=== PATIENT | female | born 1955 | race African-American/Black ===

== ENCOUNTER 2020-12-13 14:01 | Inpatient (IN) | payer MEDICAID ==
[~2020-12-13] VITALS: Ht 162.6 cm; Wt 62.8 kg
[2020-12-13] MEDS ORDERED: CEFTAZIDIME PENTAHYDRATE 2 G in DEXT 5% WATER 100 ML IV STA (14:21)
[2020-12-13] MEDS ORDERED: CALCIUM GLUCONATE 100MG/ML 10ML VIAL IV ONE (14:30)
[2020-12-13] MEDS ORDERED: VANCOMYCIN 1 G PREMIX 200 ML IV SCH (14:30)
[2020-12-13 14:55] LABS: BASOPHILS % 0.3 % (0.0-2.0); HEMATOCRIT. 30.3 % (36.0-48.0); HEMOGLOBIN. 9.7 g/dL (12.0-16.0); MEAN CORPUSCULAR HEMOGLOBIN 30.6 pg (28.0-32.0); MEAN CORPUSCULAR VOLUME 95.5 fL (81.0-99.0); MEAN PLATELET VOLUME 11.2 fl (7.4-10.4); MONOCYTES % 9.6 % (2.0-8.0); NEUTROPHILS % 82.1 % (40.0-76.0); PLATELET 89 x1000/uL (130-400); RED BLOOD CELL COUNT 3.17 mill/uL (4.2-5.4); RED CELL DISTRIBUTION WIDTH 17.4 % (11.6-14.6)
[2020-12-13 15:02] LABS: CHLORIDE 100 mEq/L (98-107)
[2020-12-13] MEDS ORDERED: ASPIRIN 81MG TABLET PO ONE (16:30)
[2020-12-13] MEDS ORDERED: NITROGLYCERIN 0.4MG TABLET SL SL ONE (16:30)
[2020-12-13] MEDS ORDERED: MORPHINE SULFATE 4 MG/ML CPJ (NOT FOR IM USE) IV ONE (16:30)
[2020-12-13] MEDS ORDERED: ASPIRIN 325MG TABLET PO ONE (17:00)
[2020-12-13] MEDS ORDERED: SODIUM CHLORIDE 0.9% 250 ML IV ONE (17:30)
[2020-12-13] MEDS ORDERED: HYDROCORTISONE SOD SUCCINATE 100 MG/2 ML VIAL IV ONE (17:30)
[2020-12-13 19:14] LABS: BG BASE EXCESS -3.3 mmol/L (-2.0-2.0); BG CARBOXYHEMOGLOBIN 0.3 % (0.5-1.5); BG DEOXYHEMOGLOBIN 0.6 % (0.0-5.0); BG FRACTION INSPIRED OXYGEN 100; BG METHEMOGLOBIN 0.1 % (0.0-1.5); BG OXYGEN SATURATION 99.4 % (92.0-98.5); BG PCO2 62.4 mmHg (35.0-45.0); BG PO2 280.4 mmHg (75.0-100.0); BG SAMPLE SITE RIGHT BRACHIAL; BG TOTAL HEMOGLOBIN 10.1 g/dL (12.0-18.0); BG VENT MODE MASK - NRB
[2020-12-13 22:02] VITALS: BP 164/78
[2020-12-13 23:02] VITALS: BP 152/77
[2020-12-13] MEDS ORDERED: LISI20TA31 PO (23:33)
[2020-12-13] MEDS ORDERED: CALC667T6 PO (23:33)
[2020-12-13] MEDS ORDERED: CLOP75TA33 PO (23:33)
[2020-12-13] MEDS ORDERED: SERT-422 PO (23:33)
[2020-12-13] MEDS ORDERED: FURO20TA4 PO (23:33)
[2020-12-13] MEDS ORDERED: AMLO10TA80 PO (23:33)
[2020-12-13] MEDS ORDERED: GABA-290 PO (23:33)
[2020-12-13] MEDS ORDERED: ATOR80TA PO (23:33)
[2020-12-13] MEDS ORDERED: CARV6.2548 PO (23:33)
[2020-12-14] VITALS (13 sets, daily range): BP systolic 91–149; BP diastolic 41–90
[2020-12-14] MEDS ORDERED: LORAZEPAM 2MG/ML CPJ IV PRN (01:00)
[2020-12-14] MEDS ORDERED: DEXTROSE 50% WATER 50ML SYRINGE IV PRN (01:00)
[2020-12-14] MEDS: EPOETIN ALFA-EPBX 4,000 UNIT/ML VIAL SUBCUT SCH (02:28)
[2020-12-14] MEDS: DIPHENHYDRAMINE 50MG/ML VIAL IV PRN ×2 (03:21→14:52)
[2020-12-14] MEDS: BLOOD SUGAR DIAGNOSTIC STRIP TEST SCH ×4 (06:35→20:22)
[2020-12-14 08:10] LABS: HEMATOCRIT. 29.2 % (36.0-48.0); HEMOGLOBIN. 9.2 g/dL (12.0-16.0); MEAN CORPUSCULAR HEMOGLOBIN 29.6 pg (28.0-32.0); MEAN CORPUSCULAR VOLUME 93.8 fL (81.0-99.0); MEAN PLATELET VOLUME 11.1 fl (7.4-10.4); PLATELET 110 x1000/uL (130-400); RED BLOOD CELL COUNT 3.12 mill/uL (4.2-5.4); RED CELL DISTRIBUTION WIDTH 17.7 % (11.6-14.6)
[2020-12-14] MEDS: CALCIUM ACETATE 667MG CAPSULE PO SCH ×3 (08:15→16:38)
[2020-12-14] MEDS: SERTRALINE HCL 50MG TABLET PO SCH (08:15)
[2020-12-14] MEDS: CLOPIDOGREL 75MG TABLET PO SCH (08:15)
[2020-12-14] MEDS: FOLIC ACID/VITAMIN B COMP W-C TABLET PO SCH (08:15)
[2020-12-14] MEDS: INSULIN LISPRO 100 UNITS/ML SUBCUT SCH ×4 (08:21→20:34)
[2020-12-14] MEDS: CARVEDILOL 6.25 MG TABLET PO SCH ×2 (08:27→21:13)
[2020-12-14] MEDS: AMLODIPINE 10MG TABLET PO SCH (09:00)
[2020-12-14] MEDS: LISINOPRIL 20MG TABLET PO SCH (09:00)
[2020-12-14 09:13] LABS: PHOSPHORUS 7.6 mg/dL (2.5-4.9)
[2020-12-14] MEDS ORDERED: HYDROCODONE/ACETAMINOPHEN 5/325MG TABLET PO PRN (15:30)
[2020-12-14] MEDS ORDERED: ACETAMINOPHEN 650MG/20.3ML UDC PO PRN (15:30)
[2020-12-15] VITALS (12 sets, daily range): BP systolic 93–147; BP diastolic 64–97
[2020-12-15 01:19] LABS: PLATELET ESTIMATE DECREASED
[2020-12-15 06:17] LABS: BASOPHILS % 0.5 % (0.0-2.0); HEMATOCRIT. 30.4 % (36.0-48.0); HEMOGLOBIN. 9.7 g/dL (12.0-16.0); LYMPHOCYTES % 11.2 % (20.0-50.0); MEAN CORPUSCULAR HEMOGLOBIN 29.7 pg (28.0-32.0); MEAN CORPUSCULAR VOLUME 93.4 fL (81.0-99.0); MEAN PLATELET VOLUME 10.6 fl (7.4-10.4); NEUTROPHILS % 75.3 % (40.0-76.0); PLATELET 102 x1000/uL (130-400); RED BLOOD CELL COUNT 3.26 mill/uL (4.2-5.4); RED CELL DISTRIBUTION WIDTH 17.6 % (11.6-14.6)
[2020-12-15] MEDS: BLOOD SUGAR DIAGNOSTIC STRIP TEST SCH ×4 (06:23→20:13)
[2020-12-15] MEDS: INSULIN LISPRO 100 UNITS/ML SUBCUT SCH ×4 (06:41→20:36)
[2020-12-15] MEDS: CALCIUM ACETATE 667MG CAPSULE PO SCH ×3 (07:20→16:59)
[2020-12-15] MEDS: CARVEDILOL 6.25 MG TABLET PO SCH ×2 (09:00→21:00)
[2020-12-15] MEDS: SERTRALINE HCL 50MG TABLET PO SCH (17:00)
[2020-12-15] MEDS: CLOPIDOGREL 75MG TABLET PO SCH (17:00)
[2020-12-15] MEDS: FOLIC ACID/VITAMIN B COMP W-C TABLET PO SCH (17:00)
[2020-12-15] MEDS: AMLODIPINE 10MG TABLET PO SCH (17:01)
[2020-12-15] MEDS: LISINOPRIL 20MG TABLET PO SCH (17:03)
[2020-12-15] MEDS: ONDANSETRON HCL 4MG/2ML INJ IV PRN (18:38)
[2020-12-15] MEDS: FAMOTIDINE 20MG TABLET PO SCH (20:51)
[2020-12-16] VITALS (12 sets, daily range): BP systolic 103–126; BP diastolic 57–68
[2020-12-16] MEDS: BLOOD SUGAR DIAGNOSTIC STRIP TEST SCH ×4 (06:43→21:00)
[2020-12-16] MEDS: INSULIN LISPRO 100 UNITS/ML SUBCUT SCH ×4 (06:56→22:02)
[2020-12-16] MEDS: ONDANSETRON HCL 4MG/2ML INJ IV PRN (07:53)
[2020-12-16] MEDS: CARVEDILOL 6.25 MG TABLET PO SCH ×2 (09:00→22:00)
[2020-12-16] MEDS: AMLODIPINE 10MG TABLET PO SCH (09:00)
[2020-12-16] MEDS: LISINOPRIL 20MG TABLET PO SCH (09:00)
[2020-12-16] MEDS: CLOPIDOGREL 75MG TABLET PO SCH (10:04)
[2020-12-16] MEDS: FOLIC ACID/VITAMIN B COMP W-C TABLET PO SCH (10:04)
[2020-12-16] MEDS: CALCIUM ACETATE 667MG CAPSULE PO SCH ×3 (10:04→17:20)
[2020-12-16] MEDS: SERTRALINE HCL 50MG TABLET PO SCH (10:04)
[2020-12-16 11:06] LABS: BG BASE EXCESS -3.5 mmol/L (-2.0-2.0); BG CARBOXYHEMOGLOBIN 0.2 % (0.5-1.5); BG DEOXYHEMOGLOBIN 29.4 % (0.0-5.0); BG HCO3 ACT 25.2 mmol/L (22.0-26.0); BG METHEMOGLOBIN 0.4 % (0.0-1.5); BG OXYGEN SATURATION 70.4 % (92.0-98.5); BG PH 7.207 (7.350-7.450); BG PO2 42.5 mmHg (75.0-100.0); BG SAMPLE SITE RIGHT RADIAL; BG TOTAL HEMOGLOBIN 11.1 g/dL (12.0-18.0); BG VENT MODE ROOM AIR
[2020-12-16 11:45] LABS: BASOPHILS % 0.3 % (0.0-2.0); HEMATOCRIT. 30.2 % (36.0-48.0); HEMOGLOBIN. 9.8 g/dL (12.0-16.0); LYMPHOCYTES % 7.3 % (20.0-50.0); MEAN CORPUSCULAR HEMOGLOBIN 30.4 pg (28.0-32.0); MEAN CORPUSCULAR VOLUME 93.6 fL (81.0-99.0); MEAN PLATELET VOLUME 10.4 fl (7.4-10.4); MONOCYTES % 10.3 % (2.0-8.0); NEUTROPHILS % 82.1 % (40.0-76.0); PLATELET 102 x1000/uL (130-400); RED BLOOD CELL COUNT 3.23 mill/uL (4.2-5.4); RED CELL DISTRIBUTION WIDTH 17.3 % (11.6-14.6)
[2020-12-16] MEDS: METHYLPREDNISOLONE SOD SUCC 40 MG/ML VIAL IV SCH ×2 (12:00→22:03)
[2020-12-16 12:20] LABS: VITAMIN B12 SERUM 1244 pg/mL (211-911)
[2020-12-16 16:01] LABS: HEPATITIS B SURFACE ANTIGEN NEGATIVE
[2020-12-16 16:30] LABS: HEPATITIS A AB IGM NEGATIVE (NEGATIVE)
[2020-12-16] MEDS: ALBUTEROL (0.083%) 2.5MG/3ML NEB HHN SCH (21:03)
[2020-12-16] MEDS: FAMOTIDINE 20MG TABLET PO SCH (21:59)
[2020-12-16] MEDS: EPOETIN ALFA-EPBX 4,000 UNIT/ML VIAL SUBCUT SCH (22:01)
[2020-12-17] VITALS (8 sets, daily range): BP systolic 103–123; BP diastolic 47–94
[2020-12-17] MEDS: ALBUTEROL (0.083%) 2.5MG/3ML NEB HHN SCH ×2 (01:45→09:21)
[2020-12-17] MEDS: BLOOD SUGAR DIAGNOSTIC STRIP TEST SCH ×2 (06:30→12:38)
[2020-12-17 07:12] LABS: HEMATOCRIT. 32.6 % (36.0-48.0); HEMOGLOBIN. 10.2 g/dL (12.0-16.0); MEAN CORPUSCULAR HEMOGLOBIN 30.4 pg (28.0-32.0); MEAN CORPUSCULAR VOLUME 96.8 fL (81.0-99.0); MEAN PLATELET VOLUME 11.3 fl (7.4-10.4); PLATELET 101 x1000/uL (130-400); RED BLOOD CELL COUNT 3.37 mill/uL (4.2-5.4); RED CELL DISTRIBUTION WIDTH 17.8 % (11.6-14.6)
[2020-12-17] MEDS: METHYLPREDNISOLONE SOD SUCC 40 MG/ML VIAL IV SCH (08:40)
[2020-12-17] MEDS: LISINOPRIL 20MG TABLET PO SCH (08:40)
[2020-12-17] MEDS: CALCIUM ACETATE 667MG CAPSULE PO SCH ×2 (08:40→12:20)
[2020-12-17] MEDS: SERTRALINE HCL 50MG TABLET PO SCH (08:42)
[2020-12-17] MEDS: FOLIC ACID/VITAMIN B COMP W-C TABLET PO SCH (08:42)
[2020-12-17] MEDS: CARVEDILOL 6.25 MG TABLET PO SCH (08:42)
[2020-12-17] MEDS: CLOPIDOGREL 75MG TABLET PO SCH (08:42)
[2020-12-17] MEDS: AMLODIPINE 10MG TABLET PO SCH (08:42)
[2020-12-17] MEDS: INSULIN LISPRO 100 UNITS/ML SUBCUT SCH ×2 (08:43→13:26)
[2020-12-17] MEDS: ONDANSETRON HCL 4MG/2ML INJ IV PRN (09:42)
[2020-12-17] MEDS ORDERED: SODIUM POLYSTYRENE SULFONATE 15 G/60 ML BOT PO SCH (11:00)
[2020-12-17 13:21] LABS: PLATELET ESTIMATE DECREASED
[2020-12-17] MEDS ORDERED: INSULIN LISPRO 100 UNITS/ML SUBCUT SCH (13:30)
[2020-12-17] MEDS ORDERED: INSULIN REGULAR (HUMULIN R) UD 100 UNITS/ML SYR SUBCUT SCH (14:00)
== END 2020-12-17 13:44 | disposition home or self-care (01) | DRG 133 ==
LOC: ER 14:48 → 3WST 17:07 → ENRESERV 19:35
PROVIDERS: ADMIT Family Medicine; ATTEND Family Medicine
PROC: 5A1D70Z Performance of Urinary Filtration, Intermittent, Less than 6 Hours Per Day (ICD-10-PCS; principal; 2020-12-13)
PROC: 5A1D70Z Performance of Urinary Filtration, Intermittent, Less than 6 Hours Per Day (ICD-10-PCS; 2020-12-14)
PROC: 5A1D70Z Performance of Urinary Filtration, Intermittent, Less than 6 Hours Per Day (ICD-10-PCS; 2020-12-16)
PROC: 5A1D70Z Performance of Urinary Filtration, Intermittent, Less than 6 Hours Per Day (ICD-10-PCS; 2020-12-17)
DX: J96.01 Acute respiratory failure with hypoxia (principal); I13.2 Hypertensive heart and chronic kidney disease with heart failure and with stage 5 chronic kidney disease, or end stage renal disease; E11.22 Type 2 diabetes mellitus with diabetic chronic kidney disease; E87.1 Hypo-osmolality and hyponatremia; N18.6 End stage renal disease; E87.5 Hyperkalemia; I69.954 Hemiplegia and hemiparesis following unspecified cerebrovascular disease affecting left non-dominant side; D64.9 Anemia, unspecified; S92.352A Displaced fracture of fifth metatarsal bone, left foot, initial encounter for closed fracture; I25.10 Atherosclerotic heart disease of native coronary artery without angina pectoris; J44.9 Chronic obstructive pulmonary disease, unspecified; F32.9 Major depressive disorder, single episode, unspecified; I50.43 Acute on chronic combined systolic (congestive) and diastolic (congestive) heart failure; X58.XXXA Exposure to other specified factors, initial encounter; Z91.19 Patient's noncompliance with other medical treatment and regimen; Z95.1 Presence of aortocoronary bypass graft; Z99.2 Dependence on renal dialysis; Z88.0 Allergy status to penicillin; Z79.899 Other long term (current) drug therapy; I25.2 Old myocardial infarction; Y93.89 Activity, other specified; Y92.89 Other specified places as the place of occurrence of the external cause; Y99.8 Other external cause status
CPT/HCPCS: 36415; 36600; 71045; 73630; 80048; 80053; 80074; 82140; 82375; 82607; 82652; 82805; 82962; 83735; 83880; 84100; 84443; 84484; 85025; 86705; 86709; 86803; 87340; 93005; 93970; 94640; 97162; 99291; A6261; J0610; J0713; J0885; J1200; J1720; J1815; J2060; J2270; J2405; J2920; J3370; J7050; J7060

== ENCOUNTER 2021-03-10 22:07 | Emergency (ER) | payer MEDICAID ==
[~2021-03-10] VITALS: Ht 165.1 cm; Wt 73.0 kg
[~2021-03-10 22:07] MED LIST: AMLO10TA80 PO; ATOR80TA PO; CALC667T6 PO; CARV6.2548 PO; CLOP75TA33 PO; FURO20TA4 PO; GABA-290 PO; LISI20TA31 PO; SERT50TA12 PO
[2021-03-10] MEDS ORDERED: IBUP-2029 MT (23:05)
[2021-03-10] MEDS ORDERED: GABA-532 MT (23:05)
[2021-03-10] MEDS ORDERED: MORPHINE SULFATE 4 MG/ML CPJ (NOT FOR IM USE) IV ONE (23:15)
[2021-03-10 23:35] VITALS: BP 145/68
== END 2021-03-11 00:18 | disposition home or self-care (01) ==
LOC: ER 22:07
DX: M79.672 Pain in left foot (principal); G62.9 Polyneuropathy, unspecified; E11.22 Type 2 diabetes mellitus with diabetic chronic kidney disease; N18.6 End stage renal disease; Z88.0 Allergy status to penicillin; Z99.2 Dependence on renal dialysis
CPT/HCPCS: 82962; 93005; 96374; 99283; J2270

== ENCOUNTER 2021-04-07 13:55 | Inpatient (IN) | payer MEDICARE, MEDICAID ==
[~2021-04-07] VITALS: Ht 165.1 cm; Wt 64.9 kg
[~2021-04-07 13:55] MED LIST changes: +GABA-532 MT; +IBUP-2029 MT; +SERT-422 PO; -SERT50TA12 PO
[2021-04-07 16:21] LABS: BASOPHILS % 0.7 % (0.0-2.0); EOSINOPHILS % 0.2 % (0.0-5.0); HEMATOCRIT. 26.5 % (36.0-48.0); HEMOGLOBIN. 8.3 g/dL (12.0-16.0); LYMPHOCYTES % 8.8 % (20.0-50.0); MEAN CORPUSCULAR HEMOGLOBIN 29.9 pg (28.0-32.0); MEAN CORPUSCULAR VOLUME 95.5 fL (81.0-99.0); MEAN PLATELET VOLUME 10.7 fl (7.4-10.4); MONOCYTES % 9.3 % (2.0-8.0); PLATELET 118 x1000/uL (130-400); RED BLOOD CELL COUNT 2.78 mill/uL (4.2-5.4); RED CELL DISTRIBUTION WIDTH 19.9 % (11.6-14.6)
[2021-04-07 16:29] LABS: CHLORIDE 99 mEq/L (98-107)
[2021-04-07 16:37] LABS: ETHANOL BLOOD < 10 mg/dL
[2021-04-07 19:57] LABS: BG BASE EXCESS 2.2 mmol/L (-2.0-2.0); BG CARBOXYHEMOGLOBIN 0.6 % (0.5-1.5); BG FRACTION INSPIRED OXYGEN 21; BG HCO3 ACT 28.2 mmol/L (22.0-26.0); BG METHEMOGLOBIN 0.2 % (0.0-1.5); BG OXYHEMOGLOBIN 93.2 % (94.0-97.0); BG PCO2 51.7 mmHg (35.0-45.0); BG PH 7.355 (7.350-7.450); BG PO2 73.3 mmHg (75.0-100.0); BG SAMPLE SITE LEFT RADIAL; BG VENT MODE ROOM AIR
[2021-04-07] MEDS ORDERED: ACETAMINOPHEN 325MG TABLET PO PRN ×2 (20:45)
[2021-04-07] MEDS ORDERED: CLONIDINE 0.1MG TABLET PO PRN (20:45)
[2021-04-07] MEDS ORDERED: ONDANSETRON HCL 4MG/2ML INJ IV PRN (20:45)
[2021-04-07] MEDS ORDERED: MAGNESIUM/ALUMINUM HYDROXIDE/SIMETHICONE 30ML UDC PO PRN (20:45)
[2021-04-07] MEDS ORDERED: ZOLPIDEM TARTRATE 5MG TABLET PO PRN (20:45)
[2021-04-07] MEDS: BLOOD SUGAR DIAGNOSTIC STRIP TEST SCH (21:00)
[2021-04-07] MEDS: INSULIN LISPRO 100 UNITS/ML SUBCUT SCH (21:00)
[2021-04-07 21:35] VITALS: BP 120/66
[2021-04-07] MEDS ORDERED: INSULIN GLARGINE UD 100 UNITS/ML SYR SUBCUT SCH (22:00)
[2021-04-07] MEDS: ATORVASTATIN CALCIUM 40MG TABLET PO SCH (22:03)
[2021-04-07] MEDS: CARVEDILOL 3.125 MG TABLET PO SCH (22:04)
[2021-04-07] MEDS ORDERED: NALOXONE HCL 0.4MG/ML VIAL IV PRN (23:00)
[2021-04-07] MEDS: SODIUM CHLORIDE 0.9% INJ 3ML FLUSH IVF SCH (23:05)
[2021-04-07] MEDS: MORPHINE SULFATE 2 MG/ML CPJ (NOT FOR IM USE) IV PRN (23:12)
[2021-04-08] VITALS: BP 137/76
[2021-04-08] MEDS: DIPHENHYDRAMINE 50MG/ML VIAL IV PRN ×2 (00:38→21:38)
[2021-04-08 04:00] VITALS: BP 106/63
[2021-04-08] MEDS: SODIUM CHLORIDE 0.9% INJ 3ML FLUSH IVF SCH ×3 (05:50→21:29)
[2021-04-08] MEDS: BLOOD SUGAR DIAGNOSTIC STRIP TEST SCH ×4 (06:26→20:09)
[2021-04-08] MEDS: MORPHINE SULFATE 2 MG/ML CPJ (NOT FOR IM USE) IV PRN ×3 (06:42→20:20)
[2021-04-08 08:00] VITALS: BP 110/76
[2021-04-08] MEDS: ASPIRIN 81MG EC TABLET PO SCH (09:32)
[2021-04-08] MEDS: CARVEDILOL 3.125 MG TABLET PO SCH ×2 (09:33→20:19)
[2021-04-08] MEDS: INSULIN LISPRO 100 UNITS/ML SUBCUT SCH ×4 (09:35→20:10)
[2021-04-08] MEDS: HYDROCODONE/ACETAMINOPHEN 5/325MG TABLET PO PRN ×2 (10:46)
[2021-04-08] MEDS ORDERED: INFLUENZA VACCINE 05/PF 0.5 ML SYRINGE IM ONE (12:00)
[2021-04-08] MEDS ORDERED: PNEUMOCOCCAL 23-VAL P-SAC VAC 0.5 ML IM ONE (12:00)
[2021-04-08 12:15] VITALS: BP 99/66
[2021-04-08] MEDS: DEXTROSE 50% WATER 50ML SYRINGE IV PRN (17:38)
[2021-04-08 18:13] LABS: HEPATITIS B SURFACE ANTIGEN NEGATIVE
[2021-04-08] MEDS: ATORVASTATIN CALCIUM 40MG TABLET PO SCH (20:18)
[2021-04-08 20:39] VITALS: BP 145/68
[2021-04-08] MEDS: INSULIN GLARGINE UD 100 UNITS/ML SYR SUBCUT SCH (22:11)
[2021-04-09] MEDS: HYDROCODONE/ACETAMINOPHEN 5/325MG TABLET PO PRN ×2 (00:08→14:02)
[2021-04-09 00:18] VITALS: BP 122/65
[2021-04-09] MEDS: MORPHINE SULFATE 2 MG/ML CPJ (NOT FOR IM USE) IV PRN ×3 (03:49→22:01)
[2021-04-09 04:00] VITALS: BP 127/75
[2021-04-09] MEDS: SODIUM CHLORIDE 0.9% INJ 3ML FLUSH IVF SCH ×3 (06:10→21:13)
[2021-04-09] MEDS: BLOOD SUGAR DIAGNOSTIC STRIP TEST SCH ×4 (06:15→21:04)
[2021-04-09] MEDS: DEXTROSE 50% WATER 50ML SYRINGE IV PRN (06:18)
[2021-04-09] MEDS: INSULIN LISPRO 100 UNITS/ML SUBCUT SCH ×4 (06:54→21:12)
[2021-04-09 06:58] LABS: BASOPHILS % 0.5 % (0.0-2.0); EOSINOPHILS % 0.1 % (0.0-5.0); HEMATOCRIT. 29.8 % (36.0-48.0); HEMOGLOBIN. 9.2 g/dL (12.0-16.0); LYMPHOCYTES % 9.6 % (20.0-50.0); MEAN CORPUSCULAR HEMOGLOBIN 30.3 pg (28.0-32.0); MEAN CORPUSCULAR VOLUME 98.1 fL (81.0-99.0); MEAN PLATELET VOLUME 11.6 fl (7.4-10.4); MONOCYTES % 12.4 % (2.0-8.0); NEUTROPHILS % 77.4 % (40.0-76.0); PLATELET 141 x1000/uL (130-400); RED BLOOD CELL COUNT 3.04 mill/uL (4.2-5.4); RED CELL DISTRIBUTION WIDTH 20.2 % (11.6-14.6)
[2021-04-09 07:05] LABS: CHLORIDE 99 mEq/L (98-107)
[2021-04-09 08:12] VITALS: BP 113/59
[2021-04-09] MEDS: CARVEDILOL 3.125 MG TABLET PO SCH ×2 (09:00→21:00)
[2021-04-09] MEDS: ASPIRIN 81MG EC TABLET PO SCH (09:22)
[2021-04-09 12:20] VITALS: BP 104/63
[2021-04-09 16:58] VITALS: BP 121/66
[2021-04-09 20:44] VITALS: BP 117/57
[2021-04-09] MEDS: ATORVASTATIN CALCIUM 40MG TABLET PO SCH (21:11)
[2021-04-09] MEDS: INSULIN GLARGINE UD 100 UNITS/ML SYR SUBCUT SCH (21:12)
[2021-04-10 00:25] VITALS: BP 127/80
[2021-04-10] MEDS: DIPHENHYDRAMINE 50MG/ML VIAL IV PRN ×2 (01:39→07:57)
[2021-04-10 04:00] VITALS: BP 122/58
[2021-04-10] MEDS: SODIUM CHLORIDE 0.9% INJ 3ML FLUSH IVF SCH ×2 (06:05→12:06)
[2021-04-10 06:18] LABS: HEMATOCRIT. 32.4 % (36.0-48.0); HEMOGLOBIN. 9.1 g/dL (12.0-16.0); MEAN CORPUSCULAR VOLUME 106.4 fL (81.0-99.0); MEAN PLATELET VOLUME 11.4 fl (7.4-10.4); PLATELET 119 x1000/uL (130-400); RED BLOOD CELL COUNT 3.05 mill/uL (4.2-5.4); RED CELL DISTRIBUTION WIDTH 21.3 % (11.6-14.6)
[2021-04-10] MEDS: BLOOD SUGAR DIAGNOSTIC STRIP TEST SCH ×3 (06:31→17:20)
[2021-04-10] MEDS: INSULIN LISPRO 100 UNITS/ML SUBCUT SCH ×3 (07:50→17:28)
[2021-04-10] MEDS ORDERED: HEPARIN SODIUM 1,000 UNIT/1ML VIAL IV NR (08:15)
[2021-04-10 08:43] VITALS: BP 97/54
[2021-04-10] MEDS: CARVEDILOL 3.125 MG TABLET PO SCH (09:00)
[2021-04-10 10:57] LABS: PLATELET ESTIMATE DECREASED
[2021-04-10] MEDS: HYDROCODONE/ACETAMINOPHEN 5/325MG TABLET PO PRN (11:52)
[2021-04-10] MEDS: ASPIRIN 81MG EC TABLET PO SCH (12:25)
[2021-04-10 12:49] VITALS: BP 103/56
[2021-04-10 16:07] VITALS: BP 98/50
[2021-04-10 19:42] VITALS: BP 136/67
== END 2021-04-10 21:00 | disposition home or self-care (01) | DRG 52 ==
LOC: ER 13:55 → EDBEDREQTM 17:06 → EDBEDREQ 17:06 → EDBEDREQTM 18:21 → ENRESERV 20:42 → 6WST 21:47
PROVIDERS: ADMIT Internal Medicine; ATTEND Internal Medicine
PROC: 5A1D70Z Performance of Urinary Filtration, Intermittent, Less than 6 Hours Per Day (ICD-10-PCS; principal; 2021-04-10)
DX: G93.41 Metabolic encephalopathy (principal); J96.01 Acute respiratory failure with hypoxia; I50.43 Acute on chronic combined systolic (congestive) and diastolic (congestive) heart failure; D69.6 Thrombocytopenia, unspecified; E11.52 Type 2 diabetes mellitus with diabetic peripheral angiopathy with gangrene; E46 Unspecified protein-calorie malnutrition; I67.82 Cerebral ischemia; I96 Gangrene, not elsewhere classified; I69.354 Hemiplegia and hemiparesis following cerebral infarction affecting left non-dominant side; N18.6 End stage renal disease; E11.22 Type 2 diabetes mellitus with diabetic chronic kidney disease; I13.2 Hypertensive heart and chronic kidney disease with heart failure and with stage 5 chronic kidney disease, or end stage renal disease; E11.621 Type 2 diabetes mellitus with foot ulcer; I25.5 Ischemic cardiomyopathy; I25.10 Atherosclerotic heart disease of native coronary artery without angina pectoris; E87.5 Hyperkalemia; R07.89 Other chest pain; R26.89 Other abnormalities of gait and mobility; E78.5 Hyperlipidemia, unspecified; L97.529 Non-pressure chronic ulcer of other part of left foot with unspecified severity; L97.519 Non-pressure chronic ulcer of other part of right foot with unspecified severity; D64.9 Anemia, unspecified; I34.0 Nonrheumatic mitral (valve) insufficiency; Z99.2 Dependence on renal dialysis; Z95.1 Presence of aortocoronary bypass graft; Z95.3 Presence of xenogenic heart valve; Z95.5 Presence of coronary angioplasty implant and graft; I25.2 Old myocardial infarction; Z88.0 Allergy status to penicillin; Z79.899 Other long term (current) drug therapy; Z91.81 History of falling; Z68.23 Body mass index [BMI] 23.0-23.9, adult
CPT/HCPCS: 36415; 36600; 71045; 80048; 80051; 80053; 80320; 82140; 82375; 82805; 82962; 83036; 83605; 83880; 84484; 85025; 86705; 86709; 86803; 87340; 90686; 93005; 93306; 93923; 99291; A6261; C1893; J1200; J1644; J1815; J2270; J2405; G0480

== ENCOUNTER 2021-04-15 10:16 | Inpatient (IN) | payer MEDICARE, MEDICAID ==
[~2021-04-15] VITALS: Ht 162.6 cm; Wt 66.9 kg
[2021-04-15] MEDS ORDERED: KETOROLAC 30MG/ML VIAL IV ONE (10:45)
[2021-04-15] MEDS ORDERED: SODIUM CHLORIDE 0.9% 1000ML BAG (SEPSIS BOLUS) IV ONE (10:45)
[2021-04-15 11:08] LABS: HEMATOCRIT. 27.1 % (36.0-48.0); HEMOGLOBIN. 8.2 g/dL (12.0-16.0); MEAN CORPUSCULAR HEMOGLOBIN 29.4 pg (28.0-32.0); MEAN CORPUSCULAR VOLUME 97.1 fL (81.0-99.0); MEAN PLATELET VOLUME 10.5 fl (7.4-10.4); PLATELET 98 x1000/uL (130-400); RED BLOOD CELL COUNT 2.79 mill/uL (4.2-5.4); RED CELL DISTRIBUTION WIDTH 20.4 % (11.6-14.6)
[2021-04-15 11:14] LABS: CHLORIDE 100 mEq/L (98-107)
[2021-04-15 11:29] LABS: PLATELET ESTIMATE DECREASED
[2021-04-15 14:41] LABS: HEPATITIS B SURFACE ANTIGEN NEGATIVE
[2021-04-15] MEDS ORDERED: ONDANSETRON HCL 4MG/2ML INJ IV PRN (15:45)
[2021-04-15] MEDS ORDERED: CLONIDINE 0.1MG TABLET PO PRN (15:45)
[2021-04-15] MEDS ORDERED: ACETAMINOPHEN 325MG TABLET PO PRN ×2 (15:45)
[2021-04-15] MEDS ORDERED: DEXTROSE 50% WATER 50ML SYRINGE IV PRN (16:30)
[2021-04-15] MEDS: INSULIN LISPRO 100 UNITS/ML SUBCUT SCH ×2 (17:00→21:00)
[2021-04-15] MEDS: BLOOD SUGAR DIAGNOSTIC STRIP TEST SCH ×2 (17:45→21:22)
[2021-04-15] MEDS: HYDROCODONE/ACETAMINOPHEN 5/325MG TABLET PO PRN (18:00)
[2021-04-15] MEDS: CARVEDILOL 3.125 MG TABLET PO SCH (21:00)
[2021-04-15] MEDS: INSULIN GLARGINE UD 100 UNITS/ML SYR SUBCUT SCH (22:00)
[2021-04-15] MEDS: DIPHENHYDRAMINE 50MG/ML VIAL IV PRN (22:45)
[2021-04-15 22:48] VITALS: BP 111/57
[2021-04-15] MEDS: ATORVASTATIN CALCIUM 40MG TABLET PO SCH (22:50)
[2021-04-15] MEDS: SODIUM CHLORIDE 0.9% INJ 3ML FLUSH IVF SCH (22:51)
[2021-04-16] VITALS (7 sets, daily range): BP systolic 94–129; BP diastolic 41–68
[2021-04-16] MEDS: SODIUM CHLORIDE 0.9% INJ 3ML FLUSH IVF SCH ×3 (06:00→22:38)
[2021-04-16 06:57] LABS: HEMATOCRIT. 25.2 % (36.0-48.0); HEMOGLOBIN. 7.8 g/dL (12.0-16.0); MEAN CORPUSCULAR HEMOGLOBIN 30.1 pg (28.0-32.0); MEAN CORPUSCULAR VOLUME 97.7 fL (81.0-99.0); MEAN PLATELET VOLUME 11.1 fl (7.4-10.4); PLATELET 87 x1000/uL (130-400); RED BLOOD CELL COUNT 2.58 mill/uL (4.2-5.4); RED CELL DISTRIBUTION WIDTH 20.3 % (11.6-14.6)
[2021-04-16] MEDS: BLOOD SUGAR DIAGNOSTIC STRIP TEST SCH ×4 (07:01→21:47)
[2021-04-16] MEDS: INSULIN LISPRO 100 UNITS/ML SUBCUT SCH ×4 (07:04→21:00)
[2021-04-16] MEDS: CARVEDILOL 3.125 MG TABLET PO SCH ×2 (09:00→21:00)
[2021-04-16] MEDS: ASPIRIN 81MG EC TABLET PO SCH (09:00)
[2021-04-16 13:36] LABS: NUCLEATED RED BLOOD CELLS 1 /100 WBC; PLATELET ESTIMATE DECREASED
[2021-04-16] MEDS: HYDROCODONE/ACETAMINOPHEN 5/325MG TABLET PO PRN ×2 (17:21→22:53)
[2021-04-16] MEDS ORDERED: NALOXONE HCL 0.4MG/ML VIAL IV PRN (18:30)
[2021-04-16] MEDS: ATORVASTATIN CALCIUM 40MG TABLET PO SCH (21:46)
[2021-04-16] MEDS: INSULIN GLARGINE UD 100 UNITS/ML SYR SUBCUT SCH (21:48)
[2021-04-16] MEDS: EPOETIN ALFA-EPBX 10,000 UNIT/ML VIAL SUBCUT SCH (21:48)
[2021-04-17] VITALS: BP 119/64
[2021-04-17 04:00] VITALS: BP 110/59
[2021-04-17] MEDS: BLOOD SUGAR DIAGNOSTIC STRIP TEST SCH ×4 (06:06→20:57)
[2021-04-17] MEDS: SODIUM CHLORIDE 0.9% INJ 3ML FLUSH IVF SCH ×3 (06:08→21:01)
[2021-04-17] MEDS: INSULIN LISPRO 100 UNITS/ML SUBCUT SCH ×4 (07:10→20:58)
[2021-04-17 08:00] VITALS: BP 123/68
[2021-04-17] MEDS: ASPIRIN 81MG EC TABLET PO SCH (08:50)
[2021-04-17] MEDS: CARVEDILOL 3.125 MG TABLET PO SCH ×2 (08:51→20:57)
[2021-04-17] MEDS: HYDROCODONE/ACETAMINOPHEN 5/325MG TABLET PO PRN ×2 (08:54→16:13)
[2021-04-17] MEDS: DIPHENHYDRAMINE 50MG/ML VIAL IV PRN (11:17)
[2021-04-17] MEDS: AZTREONAM 500MG in DEXTROSE 5% WATER 50ML IV SCH ×2 (15:52→23:04)
[2021-04-17 16:00] VITALS: BP 126/88
[2021-04-17 17:21] LABS: HEMATOCRIT. 24.5 % (36.0-48.0); HEMOGLOBIN. 7.8 g/dL (12.0-16.0); MEAN CORPUSCULAR HEMOGLOBIN 30.2 pg (28.0-32.0); MEAN CORPUSCULAR VOLUME 95.2 fL (81.0-99.0); MEAN PLATELET VOLUME 10.9 fl (7.4-10.4); PLATELET 102 x1000/uL (130-400); RED BLOOD CELL COUNT 2.58 mill/uL (4.2-5.4); RED CELL DISTRIBUTION WIDTH 20.5 % (11.6-14.6)
[2021-04-17] MEDS ORDERED: AMIKACIN SULFATE 440 MG in SODIUM CHLORIDE 0.9% 100 ML IV NR (18:00)
[2021-04-17] MEDS ORDERED: AMIKACIN 500MG in SODIUM CHLORIDE 0.9% 100ML IV NR (18:00)
[2021-04-17 18:23] LABS: PLATELET ESTIMATE DECREASED
[2021-04-17 20:00] VITALS: BP 120/51
[2021-04-17] MEDS: ATORVASTATIN CALCIUM 40MG TABLET PO SCH (20:57)
[2021-04-17] MEDS: INSULIN GLARGINE UD 100 UNITS/ML SYR SUBCUT SCH (21:02)
[2021-04-18] VITALS: BP 116/50
[2021-04-18 04:00] VITALS: BP 110/53
[2021-04-18] MEDS: INSULIN LISPRO 100 UNITS/ML SUBCUT SCH ×5 (06:22→23:11)
[2021-04-18] MEDS: SODIUM CHLORIDE 0.9% INJ 3ML FLUSH IVF SCH ×3 (06:22→23:08)
[2021-04-18] MEDS: BLOOD SUGAR DIAGNOSTIC STRIP TEST SCH ×5 (06:22→22:53)
[2021-04-18 08:00] VITALS: BP 110/71
[2021-04-18] MEDS: ASPIRIN 81MG EC TABLET PO SCH (09:55)
[2021-04-18] MEDS: AZTREONAM 500MG in DEXTROSE 5% WATER 50ML IV SCH ×4 (09:56→23:05)
[2021-04-18] MEDS: LOPERAMIDE HCL 2MG CAPSULE PO PRN ×2 (09:56→18:09)
[2021-04-18] MEDS: CARVEDILOL 3.125 MG TABLET PO SCH ×2 (09:56→21:00)
[2021-04-18] MEDS: AMLODIPINE 2.5MG TABLET PO SCH (09:56)
[2021-04-18 12:00] VITALS: BP 94/65
[2021-04-18] MEDS: HYDROCODONE/ACETAMINOPHEN 5/325MG TABLET PO PRN ×2 (14:52→23:04)
[2021-04-18 16:00] VITALS: BP 102/58
[2021-04-18] MEDS ORDERED: GENTAMICIN SULFATE 320 MG in SODIUM CHLORIDE 0.9% 100 ML IV NR (18:00)
[2021-04-18 20:00] VITALS: BP 100/64
[2021-04-18] MEDS: EPOETIN ALFA-EPBX 10,000 UNIT/ML VIAL SUBCUT SCH ×2 (21:00→23:05)
[2021-04-18] MEDS: ATORVASTATIN CALCIUM 40MG TABLET PO SCH ×2 (21:00→23:03)
[2021-04-18] MEDS: INSULIN GLARGINE UD 100 UNITS/ML SYR SUBCUT SCH ×2 (22:00→23:07)
[2021-04-19] VITALS: BP 110/51
[2021-04-19] MEDS ORDERED: PROMETHAZINE/DEXTROMETHORPHAN 6.25-15MG/5ML BOTTLE 120ML PO PRN (00:15)
[2021-04-19] MEDS: AZTREONAM 500MG in DEXTROSE 5% WATER 50ML IV SCH ×2 (01:09→23:38)
[2021-04-19] MEDS: PROMETHAZINE HCL 6.25 MG/5 ML 118ML PO PRN (02:07)
[2021-04-19 04:00] VITALS: BP 105/69
[2021-04-19] MEDS: INSULIN LISPRO 100 UNITS/ML SUBCUT SCH ×4 (06:13→21:00)
[2021-04-19] MEDS: BLOOD SUGAR DIAGNOSTIC STRIP TEST SCH ×4 (06:20→21:00)
[2021-04-19] MEDS: SODIUM CHLORIDE 0.9% INJ 3ML FLUSH IVF SCH ×3 (06:20→23:38)
[2021-04-19 06:59] LABS: HEMATOCRIT. 24.6 % (36.0-48.0); HEMOGLOBIN. 7.7 g/dL (12.0-16.0); MEAN CORPUSCULAR HEMOGLOBIN 30.1 pg (28.0-32.0); MEAN CORPUSCULAR VOLUME 96.5 fL (81.0-99.0); PLATELET 109 x1000/uL (130-400); RED BLOOD CELL COUNT 2.55 mill/uL (4.2-5.4); RED CELL DISTRIBUTION WIDTH 20.3 % (11.6-14.6)
[2021-04-19] MEDS: DIPHENHYDRAMINE 50MG/ML VIAL IV PRN (08:16)
[2021-04-19 08:30] VITALS: BP 123/54
[2021-04-19] MEDS: CARVEDILOL 3.125 MG TABLET PO SCH ×2 (11:05→21:00)
[2021-04-19] MEDS: AMLODIPINE 2.5MG TABLET PO SCH (11:05)
[2021-04-19] MEDS: HYDROCODONE/ACETAMINOPHEN 5/325MG TABLET PO PRN ×3 (11:05→22:52)
[2021-04-19] MEDS: LOPERAMIDE HCL 2MG CAPSULE PO PRN (11:05)
[2021-04-19] MEDS: ASPIRIN 81MG EC TABLET PO SCH (11:05)
[2021-04-19 11:14] LABS: PLATELET ESTIMATE SLIGHTLY DECREASED
[2021-04-19 12:00] VITALS: BP 135/69
[2021-04-19] MEDS ORDERED: LOPERAMIDE HCL 2MG CAPSULE PO PRN (15:30)
[2021-04-19 16:00] VITALS: BP 102/69
[2021-04-19 20:00] VITALS: BP 100/62
[2021-04-19] MEDS: ATORVASTATIN CALCIUM 40MG TABLET PO SCH (22:47)
[2021-04-19] MEDS: INSULIN GLARGINE UD 100 UNITS/ML SYR SUBCUT SCH (23:37)
[2021-04-20 06:21] LABS: HEMATOCRIT. 25.2 % (36.0-48.0); HEMOGLOBIN. 7.5 g/dL (12.0-16.0); MEAN CORPUSCULAR HEMOGLOBIN 29.5 pg (28.0-32.0); MEAN CORPUSCULAR VOLUME 98.8 fL (81.0-99.0); MEAN PLATELET VOLUME 11.7 fl (7.4-10.4); PLATELET 118 x1000/uL (130-400); RED BLOOD CELL COUNT 2.55 mill/uL (4.2-5.4); RED CELL DISTRIBUTION WIDTH 20.3 % (11.6-14.6)
[2021-04-20] MEDS: SODIUM CHLORIDE 0.9% INJ 3ML FLUSH IVF SCH ×2 (06:36→14:16)
[2021-04-20] MEDS: PROMETHAZINE HCL 6.25 MG/5 ML 118ML PO PRN (06:38)
[2021-04-20] MEDS: INSULIN LISPRO 100 UNITS/ML SUBCUT SCH ×3 (06:38→18:11)
[2021-04-20] MEDS: BLOOD SUGAR DIAGNOSTIC STRIP TEST SCH ×3 (06:38→16:40)
[2021-04-20 08:00] VITALS: BP 118/66
[2021-04-20] MEDS: AZTREONAM 500MG in DEXTROSE 5% WATER 50ML IV SCH (09:46)
[2021-04-20] MEDS: AMLODIPINE 2.5MG TABLET PO SCH (09:47)
[2021-04-20] MEDS: ASPIRIN 81MG EC TABLET PO SCH (09:47)
[2021-04-20] MEDS: CARVEDILOL 3.125 MG TABLET PO SCH (09:47)
[2021-04-20] MEDS: HYDROCODONE/ACETAMINOPHEN 5/325MG TABLET PO PRN ×2 (09:52→14:14)
[2021-04-20 12:09] VITALS: BP 99/56
[2021-04-20 16:00] VITALS: BP 118/82
[2021-04-20 16:44] LABS: NUCLEATED RED BLOOD CELLS 2 /100 WBC; PLATELET ESTIMATE DECREASED
[2021-04-20 19:59] VITALS: BP 127/55
== END 2021-04-20 23:08 | disposition home or self-care (01) | DRG 720 ==
LOC: ER 10:16 → MICUSO 13:17 → EDBEDREQTM 13:21 → EDBEDREQ 13:21 → 7EST 20:44
PROVIDERS: ADMIT Internal Medicine; ATTEND Internal Medicine
PROC: 5A1D70Z Performance of Urinary Filtration, Intermittent, Less than 6 Hours Per Day (ICD-10-PCS; 2021-04-15)
PROC: 5A1D70Z Performance of Urinary Filtration, Intermittent, Less than 6 Hours Per Day (ICD-10-PCS; 2021-04-17)
PROC: 5A1D70Z Performance of Urinary Filtration, Intermittent, Less than 6 Hours Per Day (ICD-10-PCS; principal; 2021-04-19)
DX: A41.52 Sepsis due to Pseudomonas (principal); I50.43 Acute on chronic combined systolic (congestive) and diastolic (congestive) heart failure; E11.52 Type 2 diabetes mellitus with diabetic peripheral angiopathy with gangrene; I27.21 Secondary pulmonary arterial hypertension; E46 Unspecified protein-calorie malnutrition; N17.9 Acute kidney failure, unspecified; D63.8 Anemia in other chronic diseases classified elsewhere; I25.810 Atherosclerosis of coronary artery bypass graft(s) without angina pectoris; I96 Gangrene, not elsewhere classified; L89.156 Pressure-induced deep tissue damage of sacral region; I13.2 Hypertensive heart and chronic kidney disease with heart failure and with stage 5 chronic kidney disease, or end stage renal disease; N18.6 End stage renal disease; K52.9 Noninfective gastroenteritis and colitis, unspecified; E11.22 Type 2 diabetes mellitus with diabetic chronic kidney disease; E86.0 Dehydration; E87.5 Hyperkalemia; I08.0 Rheumatic disorders of both mitral and aortic valves; E11.40 Type 2 diabetes mellitus with diabetic neuropathy, unspecified; E11.621 Type 2 diabetes mellitus with foot ulcer; I25.5 Ischemic cardiomyopathy; J44.9 Chronic obstructive pulmonary disease, unspecified; F32.A Depression, unspecified; E78.5 Hyperlipidemia, unspecified; L03.116 Cellulitis of left lower limb; R53.81 Other malaise; E11.65 Type 2 diabetes mellitus with hyperglycemia; L97.519 Non-pressure chronic ulcer of other part of right foot with unspecified severity; I25.10 Atherosclerotic heart disease of native coronary artery without angina pectoris; I25.2 Old myocardial infarction; Z95.3 Presence of xenogenic heart valve; Z88.0 Allergy status to penicillin; Z79.4 Long term (current) use of insulin; Z95.5 Presence of coronary angioplasty implant and graft; Z99.2 Dependence on renal dialysis; I69.354 Hemiplegia and hemiparesis following cerebral infarction affecting left non-dominant side; Z79.899 Other long term (current) drug therapy; Z87.891 Personal history of nicotine dependence; Z68.25 Body mass index [BMI] 25.0-25.9, adult
CPT/HCPCS: 36415; 71045; 73630; 80048; 80053; 82962; 84484; 85025; 85651; 86140; 86705; 86709; 86803; 87077; 87186; 87340; 93005; 99285; C1893; J0278; J0885; J1200; J1580; J1815; J1885; J3490; J7030; J7040; J7050; J7060; Q0169

== ENCOUNTER 2021-04-22 16:57 | Inpatient (IN) | payer MEDICARE, MEDICAID ==
[~2021-04-22] VITALS: Ht 165.1 cm; Wt 64.9 kg
[2021-04-22] MEDS ORDERED: MORPHINE SULFATE 4 MG/ML CPJ (NOT FOR IM USE) IV STA (18:05)
[2021-04-22] MEDS ORDERED: ONDANSETRON HCL 4MG/2ML INJ IV STA (18:05)
[2021-04-22] MEDS ORDERED: VANCOMYCIN 1 G PREMIX 200 ML IV SCH (18:15)
[2021-04-22] MEDS ORDERED: LEVOFLOXACIN 750MG PREMIX 150 ML IV ONE (18:15)
[2021-04-22] MEDS ORDERED: MORPHINE SULFATE 4 MG/ML CPJ (NOT FOR IM USE) IV NR (19:00)
[2021-04-22] MEDS ORDERED: MORPHINE SULFATE 2 MG/ML CPJ (NOT FOR IM USE) IV NR ×2 (19:00→19:35)
[2021-04-22 19:03] LABS: HEMATOCRIT. 25.5 % (36.0-48.0); HEMOGLOBIN. 7.9 g/dL (12.0-16.0); MEAN CORPUSCULAR HEMOGLOBIN 29.6 pg (28.0-32.0); MEAN CORPUSCULAR VOLUME 95.2 fL (81.0-99.0); MEAN PLATELET VOLUME 11.5 fl (7.4-10.4); PLATELET 133 x1000/uL (130-400); RED BLOOD CELL COUNT 2.67 mill/uL (4.2-5.4); RED CELL DISTRIBUTION WIDTH 20.4 % (11.6-14.6)
[2021-04-22 19:09] LABS: CHLORIDE 102 mEq/L (98-107)
[2021-04-22 19:14] LABS: INR 1.3; PARTIAL THROMBOPLASTIN TIME 31.5 sec (23.4-31.0); PROTHROMBIN TIME 13.3 sec (9.6-11.0)
[2021-04-22 19:23] LABS: PLATELET ESTIMATE NORMAL
[2021-04-22] MEDS ORDERED: CLONIDINE 0.1MG TABLET PO PRN (23:30)
[2021-04-22] MEDS ORDERED: IPRATROPIUM/ALBUTEROL 0.5-3(2.5)MG/3ML NEB HHN PRN (23:30)
[2021-04-22] MEDS ORDERED: ONDANSETRON HCL 4MG/2ML INJ IV PRN (23:30)
[2021-04-22] MEDS ORDERED: LOPERAMIDE HCL 2MG CAPSULE PO PRN (23:30)
[2021-04-22] MEDS ORDERED: DEXTROSE 50% WATER 50ML SYRINGE IV PRN (23:30)
[2021-04-22] MEDS ORDERED: ACETAMINOPHEN 325MG TABLET PO PRN ×2 (23:30)
[2021-04-22] MEDS ORDERED: INSULIN GLARGINE UD 100 UNITS/ML SYR SUBCUT SCH (23:30)
[2021-04-23] MEDS: ENOXAPARIN 30MG/0.3ML SYR SUBCUT SCH ×2 (00:36→22:02)
[2021-04-23] MEDS ORDERED: GENTAMICIN 120MG PREMIX 100 ML IV NR (01:00)
[2021-04-23] MEDS: HYDROCODONE/ACETAMINOPHEN 5/325MG TABLET PO PRN ×4 (04:29→23:06)
[2021-04-23] MEDS: BLOOD SUGAR DIAGNOSTIC STRIP TEST SCH ×4 (07:21→21:00)
[2021-04-23] MEDS: SODIUM CHLORIDE 0.9% INJ 3ML FLUSH IVF SCH ×3 (07:25→22:03)
[2021-04-23] MEDS: INSULIN LISPRO 100 UNITS/ML SUBCUT SCH ×4 (07:26→22:05)
[2021-04-23 08:00] VITALS: BP_SYST 109; BP_SYST 119; BP_DIAS 64; BP_DIAS 73
[2021-04-23] MEDS: ASPIRIN 81MG EC TABLET PO SCH (09:49)
[2021-04-23] MEDS: DIPHENHYDRAMINE 50MG/ML VIAL IV PRN ×3 (09:49→23:38)
[2021-04-23] MEDS: CARVEDILOL 3.125 MG TABLET PO SCH ×2 (09:50→21:00)
[2021-04-23 12:00] VITALS: BP 92/52
[2021-04-23 12:41] LABS: HEPATITIS B SURFACE ANTIGEN NEGATIVE
[2021-04-23 16:00] VITALS: BP 114/58
[2021-04-23 20:00] VITALS: BP 108/61
[2021-04-23] MEDS: ATORVASTATIN CALCIUM 40MG TABLET PO SCH (22:01)
[2021-04-23] MEDS: INSULIN GLARGINE UD 100 UNITS/ML SYR SUBCUT SCH (23:30)
[2021-04-24] VITALS: BP 116/68
[2021-04-24 04:00] VITALS: BP 106/57
[2021-04-24] MEDS: SODIUM CHLORIDE 0.9% INJ 3ML FLUSH IVF SCH ×3 (06:11→22:02)
[2021-04-24] MEDS: BLOOD SUGAR DIAGNOSTIC STRIP TEST SCH ×4 (06:11→21:00)
[2021-04-24] MEDS: INSULIN LISPRO 100 UNITS/ML SUBCUT SCH ×4 (07:40→21:00)
[2021-04-24 08:00] VITALS: BP 116/61
[2021-04-24] MEDS: HYDROCODONE/ACETAMINOPHEN 5/325MG TABLET PO PRN ×4 (08:03→21:49)
[2021-04-24] MEDS: CARVEDILOL 3.125 MG TABLET PO SCH ×2 (09:00→21:49)
[2021-04-24] MEDS: ASPIRIN 81MG EC TABLET PO SCH ×2 (09:00→13:11)
[2021-04-24 11:05] LABS: HEMATOCRIT. 24.5 % (36.0-48.0); HEMOGLOBIN. 7.7 g/dL (12.0-16.0); MEAN CORPUSCULAR HEMOGLOBIN 29.4 pg (28.0-32.0); MEAN CORPUSCULAR VOLUME 94.4 fL (81.0-99.0); MEAN PLATELET VOLUME 11.1 fl (7.4-10.4); PLATELET 122 x1000/uL (130-400); RED CELL DISTRIBUTION WIDTH 20.3 % (11.6-14.6)
[2021-04-24 11:28] LABS: GENTAMICIN RANDOM 4.5 ug/mL
[2021-04-24 12:00] VITALS: BP 138/65
[2021-04-24] MEDS: DIPHENHYDRAMINE 50MG/ML VIAL IV PRN ×2 (15:15→22:18)
[2021-04-24 16:00] VITALS: BP 145/118
[2021-04-24 20:00] VITALS: BP 110/66
[2021-04-24] MEDS ORDERED: GENTAMICIN 80MG PREMIX 100 ML IV SCH (21:00)
[2021-04-24] MEDS: ATORVASTATIN CALCIUM 40MG TABLET PO SCH (21:48)
[2021-04-24] MEDS: ENOXAPARIN 30MG/0.3ML SYR SUBCUT SCH (21:49)
[2021-04-24] MEDS: INSULIN GLARGINE UD 100 UNITS/ML SYR SUBCUT SCH (22:21)
[2021-04-25] VITALS: BP 114/63
[2021-04-25] MEDS: HYDROCODONE/ACETAMINOPHEN 5/325MG TABLET PO PRN ×5 (01:56→21:58)
[2021-04-25 04:00] VITALS: BP 108/68
[2021-04-25 04:42] LABS: PLATELET ESTIMATE DECREASED
[2021-04-25] MEDS: SODIUM CHLORIDE 0.9% INJ 3ML FLUSH IVF SCH ×3 (05:54→22:02)
[2021-04-25] MEDS: BLOOD SUGAR DIAGNOSTIC STRIP TEST SCH ×4 (05:54→21:00)
[2021-04-25] MEDS: INSULIN LISPRO 100 UNITS/ML SUBCUT SCH ×4 (05:54→21:00)
[2021-04-25 07:42] LABS: BASOPHILS % 0.1 % (0.0-2.0); EOSINOPHILS % 0.1 % (0.0-5.0); HEMATOCRIT. 25.8 % (36.0-48.0); HEMOGLOBIN. 7.9 g/dL (12.0-16.0); LYMPHOCYTES % 8.6 % (20.0-50.0); MEAN CORPUSCULAR HEMOGLOBIN 29.2 pg (28.0-32.0); MEAN CORPUSCULAR VOLUME 95.7 fL (81.0-99.0); MEAN PLATELET VOLUME 11.4 fl (7.4-10.4); NEUTROPHILS % 83.2 % (40.0-76.0); PLATELET 147 x1000/uL (130-400); RED BLOOD CELL COUNT 2.69 mill/uL (4.2-5.4); RED CELL DISTRIBUTION WIDTH 20.4 % (11.6-14.6)
[2021-04-25 08:00] VITALS: BP 109/58
[2021-04-25] MEDS: CARVEDILOL 3.125 MG TABLET PO SCH ×2 (09:00→21:56)
[2021-04-25] MEDS: ASPIRIN 81MG EC TABLET PO SCH (09:03)
[2021-04-25] MEDS ORDERED: SODIUM BICARBONATE 8.4% 1 MEQ/ML 50ML SYR IV SCH (09:30)
[2021-04-25] MEDS ORDERED: DEXTROSE 50% WATER 50ML SYRINGE IV SCH (09:30)
[2021-04-25] MEDS ORDERED: CALCIUM CHLORIDE 1,000 MG in DEXT 5% WATER 90 ML IV SCH (09:30)
[2021-04-25] MEDS ORDERED: INSULIN REGULAR (HUMULIN R) UD 100 UNITS/ML SYR IV SCH (09:30)
[2021-04-25] MEDS ORDERED: SODIUM POLYSTYRENE SULFONATE 15 G/60 ML BOT PO SCH (10:00)
[2021-04-25 12:00] VITALS: BP 101/84
[2021-04-25] MEDS: DIPHENHYDRAMINE 50MG/ML VIAL IV PRN ×2 (13:07→21:55)
[2021-04-25 16:00] VITALS: BP 124/69
[2021-04-25 20:00] VITALS: BP 128/66
[2021-04-25] MEDS: ATORVASTATIN CALCIUM 40MG TABLET PO SCH (21:46)
[2021-04-25] MEDS: ENOXAPARIN 30MG/0.3ML SYR SUBCUT SCH (21:55)
[2021-04-25] MEDS: INSULIN GLARGINE UD 100 UNITS/ML SYR SUBCUT SCH (22:02)
[2021-04-26] VITALS: BP 105/65
[2021-04-26] MEDS: HYDROCODONE/ACETAMINOPHEN 5/325MG TABLET PO PRN ×2 (02:10→12:11)
[2021-04-26] MEDS: DIPHENHYDRAMINE 50MG/ML VIAL IV PRN (03:29)
[2021-04-26 04:00] VITALS: BP 110/54
[2021-04-26] MEDS: SODIUM CHLORIDE 0.9% INJ 3ML FLUSH IVF SCH ×2 (06:45→13:27)
[2021-04-26] MEDS: BLOOD SUGAR DIAGNOSTIC STRIP TEST SCH ×2 (06:46→11:54)
[2021-04-26] MEDS: INSULIN LISPRO 100 UNITS/ML SUBCUT SCH ×2 (06:46→11:54)
[2021-04-26 07:42] LABS: BASOPHILS % 0.8 % (0.0-2.0); EOSINOPHILS % 0.1 % (0.0-5.0); HEMATOCRIT. 25.3 % (36.0-48.0); HEMOGLOBIN. 7.8 g/dL (12.0-16.0); LYMPHOCYTES % 7.2 % (20.0-50.0); MEAN CORPUSCULAR HEMOGLOBIN 29.5 pg (28.0-32.0); MEAN CORPUSCULAR VOLUME 95.6 fL (81.0-99.0); MONOCYTES % 8.4 % (2.0-8.0); NEUTROPHILS % 83.5 % (40.0-76.0); PLATELET 134 x1000/uL (130-400); RED BLOOD CELL COUNT 2.64 mill/uL (4.2-5.4); RED CELL DISTRIBUTION WIDTH 20.9 % (11.6-14.6)
[2021-04-26 08:00] VITALS: BP 96/1
[2021-04-26] MEDS: CARVEDILOL 3.125 MG TABLET PO SCH (08:18)
[2021-04-26] MEDS: ASPIRIN 81MG EC TABLET PO SCH (08:18)
[2021-04-26 08:23] LABS: GENTAMICIN RANDOM 3.4 ug/mL
[2021-04-26 12:00] VITALS: BP 106/58
[2021-04-26] MEDS ORDERED: HYDR-4001 MT (14:34)
[2021-04-26] MEDS ORDERED: GABA100C MT (14:34)
[2021-04-26 15:56] VITALS: BP 150/72
[2021-04-26 16:00] VITALS: BP 150/72
== END 2021-04-26 16:30 | disposition home or self-care (01) | DRG 249 ==
LOC: ER 16:57 → MICUSO 20:35 → 8WST 04-23 03:10
PROVIDERS: ADMIT Internal Medicine; ATTEND Internal Medicine
DX: K52.9 Noninfective gastroenteritis and colitis, unspecified (principal); I13.2 Hypertensive heart and chronic kidney disease with heart failure and with stage 5 chronic kidney disease, or end stage renal disease; I27.21 Secondary pulmonary arterial hypertension; N18.6 End stage renal disease; K80.10 Calculus of gallbladder with chronic cholecystitis without obstruction; E11.22 Type 2 diabetes mellitus with diabetic chronic kidney disease; D64.9 Anemia, unspecified; E11.40 Type 2 diabetes mellitus with diabetic neuropathy, unspecified; E11.51 Type 2 diabetes mellitus with diabetic peripheral angiopathy without gangrene; Z20.822 Contact with and (suspected) exposure to COVID-19; E87.5 Hyperkalemia; E78.5 Hyperlipidemia, unspecified; F12.90 Cannabis use, unspecified, uncomplicated; I08.0 Rheumatic disorders of both mitral and aortic valves; I25.10 Atherosclerotic heart disease of native coronary artery without angina pectoris; I50.20 Unspecified systolic (congestive) heart failure; J44.9 Chronic obstructive pulmonary disease, unspecified; F32.A Depression, unspecified; F41.9 Anxiety disorder, unspecified; R55 Syncope and collapse; Z88.0 Allergy status to penicillin; Z95.1 Presence of aortocoronary bypass graft; Z95.3 Presence of xenogenic heart valve; I25.2 Old myocardial infarction; Z95.5 Presence of coronary angioplasty implant and graft; Z99.2 Dependence on renal dialysis; Z79.4 Long term (current) use of insulin; Z86.73 Personal history of transient ischemic attack (TIA), and cerebral infarction without residual deficits
CPT/HCPCS: 36415; 71045; 73630; 74176; 76705; 78227; 80048; 80053; 80076; 80170; 82248; 82270; 82962; 83605; 83735; 83880; 84132; 84484; 85025; 85044; 86705; 86709; 86803; 86850; 86900; 87015; 87045; 87340; 87426; 87427; 87449; 89055; 93005; 93970; 99291; A6261; A9537; J1200; J1580; J1650; J1815; J1956; J2270; J2405; J3370; J3490; J7060

== ENCOUNTER 2021-05-02 16:16 | Inpatient (IN) | payer MEDICARE, MEDICAID ==
[~2021-05-02] VITALS: Ht 152.4 cm; Wt 63.5 kg
[~2021-05-02 16:16] MED LIST changes: -GABA-290 PO; +GABA100C MT; +HYDR-4001 MT
[2021-05-02] MEDS ORDERED: NITROGLYCERIN OINT 1GM/INCH UDPKT TD ONE (18:15)
[2021-05-02] MEDS ORDERED: HYDROCODONE/ACETAMINOPHEN 5/325MG TABLET PO ONE (19:15)
[2021-05-02 19:23] LABS: BASOPHILS % 0.2 % (0.0-2.0); HEMATOCRIT. 22.9 % (36.0-48.0); LYMPHOCYTES % 7.5 % (20.0-50.0); MEAN CORPUSCULAR HEMOGLOBIN 29.2 pg (28.0-32.0); MONOCYTES % 7.8 % (2.0-8.0); NEUTROPHILS % 84.5 % (40.0-76.0); PLATELET 112 x1000/uL (130-400); RED BLOOD CELL COUNT 2.41 mill/uL (4.2-5.4); RED CELL DISTRIBUTION WIDTH 20.1 % (11.6-14.6)
[2021-05-02 19:26] LABS: INR 1.3; PROTHROMBIN TIME 13.6 sec (9.6-11.0)
[2021-05-02 19:47] LABS: CHLORIDE 102 mEq/L (98-107)
[2021-05-02 22:35] VITALS: BP 111/60
[2021-05-02 22:38] VITALS: BP 111/60
[2021-05-03] VITALS (7 sets, daily range): BP systolic 92–134; BP diastolic 53–72
[2021-05-03] MEDS ORDERED: ONDANSETRON HCL 4MG/2ML INJ IV PRN (00:15)
[2021-05-03] MEDS ORDERED: NALOXONE HCL 0.4 MG/ML 1ML VIAL IV PRN (00:30)
[2021-05-03] MEDS: HYDROCODONE/ACETAMINOPHEN 5/325MG TABLET PO PRN ×4 (00:49→21:16)
[2021-05-03 07:45] LABS: BASOPHILS % 0.4 % (0.0-2.0); EOSINOPHILS % 0.1 % (0.0-5.0); HEMATOCRIT. 25.3 % (36.0-48.0); LYMPHOCYTES % 9.1 % (20.0-50.0); MEAN CORPUSCULAR HEMOGLOBIN 29.4 pg (28.0-32.0); MEAN CORPUSCULAR VOLUME 93.3 fL (81.0-99.0); MEAN PLATELET VOLUME 11.9 fl (7.4-10.4); MONOCYTES % 11.7 % (2.0-8.0); NEUTROPHILS % 78.7 % (40.0-76.0); PLATELET 108 x1000/uL (130-400); RED BLOOD CELL COUNT 2.71 mill/uL (4.2-5.4); RED CELL DISTRIBUTION WIDTH 19.6 % (11.6-14.6)
[2021-05-03 10:19] LABS: HEPATITIS B SURFACE ANTIGEN NEGATIVE
[2021-05-03] MEDS ORDERED: DIPHENHYDRAMINE 50MG/ML VIAL IV NR (11:45)
[2021-05-03] MEDS ORDERED: GUAIFENESIN 200MG/10ML SUGAR FREE UDC PO PRN (22:15)
[2021-05-04] VITALS: BP 106/56
[2021-05-04] MEDS: HYDROCODONE/ACETAMINOPHEN 5/325MG TABLET PO PRN (02:48)
[2021-05-04 04:00] VITALS: BP 106/58
[2021-05-04 08:00] VITALS: BP 114/64
[2021-05-04] MEDS: HYDROCODONE/ACETAMINOPHEN 10/325MG TABLET PO PRN ×3 (08:16→20:29)
[2021-05-04 09:16] LABS: BASOPHILS % 0.4 % (0.0-2.0); HEMATOCRIT. 26.9 % (36.0-48.0); HEMOGLOBIN. 8.3 g/dL (12.0-16.0); LYMPHOCYTES % 11.1 % (20.0-50.0); MEAN CORPUSCULAR HEMOGLOBIN 28.9 pg (28.0-32.0); MEAN PLATELET VOLUME 11.4 fl (7.4-10.4); MONOCYTES % 12.4 % (2.0-8.0); NEUTROPHILS % 76.1 % (40.0-76.0); PLATELET 122 x1000/uL (130-400); RED BLOOD CELL COUNT 2.86 mill/uL (4.2-5.4); RED CELL DISTRIBUTION WIDTH 19.6 % (11.6-14.6)
[2021-05-04 12:00] VITALS: BP 118/78
[2021-05-04] MEDS ORDERED: SODIUM POLYSTYRENE SULFONATE 15 G/60 ML BOT PO SCH (12:00)
[2021-05-04] MEDS ORDERED: DIPHENHYDRAMINE 50MG/ML VIAL IV NR ×2 (12:15→22:45)
[2021-05-04] MEDS ORDERED: HEPARIN SODIUM 1,000 UNIT/1ML VIAL IV SCH (12:45)
[2021-05-04 16:00] VITALS: BP 134/71
[2021-05-04] MEDS ORDERED: GUAIFENESIN 200MG/10ML SUGAR FREE UDC PO PRN (17:45)
[2021-05-04 20:00] VITALS: BP 135/73
[2021-05-04] MEDS ORDERED: ZOLPIDEM TARTRATE 5MG TABLET PO NR (22:45)
[2021-05-05] VITALS: BP 119/66
[2021-05-05 04:00] VITALS: BP 122/69
[2021-05-05] MEDS: HYDROCODONE/ACETAMINOPHEN 10/325MG TABLET PO PRN ×2 (04:30→09:11)
[2021-05-05 06:28] LABS: HEMATOCRIT. 29.3 % (36.0-48.0); HEMOGLOBIN. 9.1 g/dL (12.0-16.0); MEAN CORPUSCULAR HEMOGLOBIN 28.9 pg (28.0-32.0); MEAN CORPUSCULAR VOLUME 93.4 fL (81.0-99.0); MEAN PLATELET VOLUME 11.5 fl (7.4-10.4); PLATELET 85 x1000/uL (130-400); RED BLOOD CELL COUNT 3.14 mill/uL (4.2-5.4); RED CELL DISTRIBUTION WIDTH 19.7 % (11.6-14.6)
[2021-05-05 08:00] VITALS: BP 127/66
[2021-05-05 14:24] VITALS: BP 110/56
[2021-05-05 19:06] LABS: PLATELET ESTIMATE DECREASED
== END 2021-05-05 17:30 | disposition home health service (06) | DRG 194 ==
LOC: ER 16:16 → 7EST 20:48 → EDBEDREQTM 20:54 → EDBEDREQ 20:54 → ENRESERV 21:33
PROVIDERS: ADMIT Family Medicine; ATTEND Family Medicine
PROC: 30233N1 Transfusion of Nonautologous Red Blood Cells into Peripheral Vein, Percutaneous Approach (ICD-10-PCS; principal; 2021-05-02)
PROC: 5A1D70Z Performance of Urinary Filtration, Intermittent, Less than 6 Hours Per Day (ICD-10-PCS; 2021-05-03)
PROC: 5A1D70Z Performance of Urinary Filtration, Intermittent, Less than 6 Hours Per Day (ICD-10-PCS; 2021-05-04)
DX: I13.2 Hypertensive heart and chronic kidney disease with heart failure and with stage 5 chronic kidney disease, or end stage renal disease (principal); N17.0 Acute kidney failure with tubular necrosis; D69.6 Thrombocytopenia, unspecified; E11.52 Type 2 diabetes mellitus with diabetic peripheral angiopathy with gangrene; E44.0 Moderate protein-calorie malnutrition; I69.354 Hemiplegia and hemiparesis following cerebral infarction affecting left non-dominant side; L97.529 Non-pressure chronic ulcer of other part of left foot with unspecified severity; N18.6 End stage renal disease; E11.22 Type 2 diabetes mellitus with diabetic chronic kidney disease; E87.5 Hyperkalemia; I50.33 Acute on chronic diastolic (congestive) heart failure; D64.9 Anemia, unspecified; E11.40 Type 2 diabetes mellitus with diabetic neuropathy, unspecified; E11.621 Type 2 diabetes mellitus with foot ulcer; E78.5 Hyperlipidemia, unspecified; R19.7 Diarrhea, unspecified; I25.10 Atherosclerotic heart disease of native coronary artery without angina pectoris; Z99.2 Dependence on renal dialysis; Z95.1 Presence of aortocoronary bypass graft; Z68.27 Body mass index [BMI] 27.0-27.9, adult; Z88.0 Allergy status to penicillin; Z79.899 Other long term (current) drug therapy; I25.2 Old myocardial infarction; Z98.62 Peripheral vascular angioplasty status; Z95.2 Presence of prosthetic heart valve; Z91.15 Patient's noncompliance with renal dialysis
CPT/HCPCS: 36415; 71045; 80048; 80053; 85025; 86705; 86709; 86803; 86850; 86900; 86920; 87015; 87045; 87340; 87427; 87449; 93005; 99285; J1200; J1644; J7040; P9016